=== PATIENT | female | born 1945 | race Caucasian/White ===

== ENCOUNTER → 2016-12-14 | Outpatient (CLI) | payer MEDICARE, OTHER | LOC: OPSV 09:41 | DX: M81.0 Age-related osteoporosis without current pathological fracture (principal) | CPT/HCPCS: 96365; J3489; J7050 ==

== ENCOUNTER → 2021-01-20 | Outpatient (CLI) | payer MEDICARE, OTHER ==
[~2021-01-20] MED LIST: ACYCLOVIR400 MG PO; ASPIRIN CHEWABL81 MG PO; CARAFATE1 GM PO; ECOTRIN81 MG PO; FISH OIL 1,0001 EAC4 PO; FOLIC ACID 1 MG1 MG PO; HYDROCHLOROTH12.5 M1 PO; K-DUR TAB 20 M20 MEQ PO; MELOXICAM7.5 MG PO; NORCO 5-325 TA1 EACH PO; OS-CAL 500+D31 EACH PO; PREDNISONE10 MG PO; PREDNISONE20 MG PO; PROTONIX40 MG PO; RIZATRIPTAN10 M1 PO; STOOL SOFTENER100 M1 PO; VITAMIN C1000 MG PO; VITAMIN E400 UNI2 PO; ZOCOR80 MG PO
== END ==
LOC: EXRD 09:14
DX: R73.9 Hyperglycemia, unspecified (principal); R51.9 Headache, unspecified
CPT/HCPCS: 70110

== ENCOUNTER → 2021-01-27 | Outpatient (CLI) | payer MEDICARE, OTHER | LOC: MAMO 07:56 → KOH-I 07:56 → MAMO 08:30 → EXRD 09:30 | DX: Z12.31 Encounter for screening mammogram for malignant neoplasm of breast (principal); Z13.820 Encounter for screening for osteoporosis; M81.0 Age-related osteoporosis without current pathological fracture; M85.88 Other specified disorders of bone density and structure, other site | CPT/HCPCS: 77063; 77067; 77080 ==

== ENCOUNTER → 2021-03-06 | Outpatient (CLI) | payer MEDICARE, OTHER | LOC: EMI 10:19 | DX: G50.1 Atypical facial pain (principal) | CPT/HCPCS: 70553; A9577 ==

== ENCOUNTER → 2021-12-17 | Outpatient (CLI) | payer MEDICARE ==
[2021-12-17 10:25] LABS: BUN/CREATININE RATIO 22 (0-10)
== END ==
LOC: LAB 08:33
PROVIDERS: Internal Medicine Nephrology
DX: E87.1 Hypo-osmolality and hyponatremia (principal)
CPT/HCPCS: 36415; 80048